=== PATIENT | male | born 1960 | race Caucasian/White ===

== ENCOUNTER 2023-08-05 02:12 | Day surgery (SDC) | payer MEDICARE, OTHER, SELFPAY ==
[2023-07-18 13:48] VITALS: BMI 25.7
[2023-08-05 06:24] VITALS: BP 120/67; PULSE 56; RESP 16; TEMP 36.3; O2SAT 100; BMI 24.3
[2023-08-05 06:37] LABS: Glucose Point of Care 112 mg/dl (65-105)
[2023-08-05] MEDS: LACTATED RINGERS 1,000 ML 150 ML IV CONT (06:38)
--- NOTE | 2023-08-05 07:04 | WPDANESEPPF ---
Anes - Initial Pre Proc Eval Procedure: Operation Date: 08/05/23 07:30 Proposed Procedures p Colonoscopy - Patrick Angela MD Date/Time: 08/05/23 07:04 Surgeon: Patrick Angela MD Pre Op Diagnosis: hx colon polyps Patient Data Age: 62 Gender: M Height: 1.85 m Weight: 83.5 kg Last Vital Signs Temp 36.3 C L 08/05/23 06:24 Pulse 56 L 08/05/23 06:24 Resp 16 08/05/23 06:24 BP 120/67 08/05/23 06:24 Pulse Ox 100 08/05/23 06:24 O2 Del Method Room Air 08/05/23 06:24 Allergies Allergy/AdvReac Type Severity Reaction Status Date / Time No Known Allergies Allergy Verified 08/05/23 06:20 Home Medications Medication Instructions Recorded Confirmed Type aspirin 81 mg tablet,delayed 81 mg PO DAILY 05/24/20 08/05/23 History release multivitamin 1 tablet PO DAILY 05/24/20 08/05/23 History omega-3 fatty acids 1,000 mg 1,000 mg PO DAILY 05/24/20 08/05/23 History capsule (Fish Oil Concentrate) metformin 500 mg tablet,extended 500 mg PO DAILY #90 tabs 02/27/23 08/05/23 Rx release 24 hr simvastatin 40 mg tablet 40 mg PO DAILY #90 tabs 06/06/23 08/05/23 Rx Laboratory Tests 08/05/23 06:32 POC Capillary Glucose 112 H mg/dl (65-105) Patient hx anesthesia problems: none Family hx anesthesia problems: none Results Review: All pre-operative results and documents have been reviewed as part of the pre-operative evaluation. [facility] Past Medical History Medical History (Updated 08/05/23 @ 07:11 by Jensen Jay DO) History of prostate cancer Hyperlipidemia Sinus bradycardia Type 2 diabetes mellitus without complications Surgical History Surgical History H/O prostatectomy History of appendectomy Family History Family History Mother Diabetes mellitus Father Family history of malignant neoplasm of urinary bladder Other Family history of malignant neoplasm Social History Social History (Reviewed 05/10/23 @ 16:08 by SCAR Marin Smoking status: Never smoker Smoking end date: 11/25/77 Alcohol intake: current Drinks per week: 5 Substance use: never Substance use type: does not use Lack of Transportation: No Lack of Food: Never True Current Housing: I Have Housing Concerned About Future Housing: No Difficulty Paying Gas/Electric Bills: No Difficulty Paying for Meds: No Difficulty w/ Childcare or Family Care: No Living arrangements: with family Spiritual care concerns: No Anes - Eval Final PreProcedure Day of Procedure 08/05/23 07:04 Patient weight: normal Heart: regular rate and rhythm Lungs: clear to auscultation and normal air movement Airway: Mallampati scale class II Neurological: alert and oriented Last oral intake: >/= 8 hours ASA classification: III Emergent: no Anesthetic plan: proceed Anesthesia type and monitoring: general GIVS and standard monitoring Results Review: All pre-operative results and documents have been reviewed as part of the pre-operative evaluation. Informed Consent: The patient's anesthetic plan and its attendant risks and benefits were discussed with the patient/family/POA. Questions were solicited and answers provided to the satisfaction of the patient/family/POA.
--- NOTE | 2023-08-05 07:18 | PM.HPGS ---
History of Present Illness History of Present Illness Consent: Risks, benefits, and alternatives have been discussed and questions answered. Patient agrees to proceed with procedure. Chief complaint: hx colon polyps Narrative: Willie Ellison is a 62 year old male Presents for colonoscopy. Patient reports that his weight appetite and bowel movements are normal. Patient denies abdominal pain. He has had no bleeding. Family history noncontributory. Previous colonoscopy 2016 revealed benign hyperplastic polyps. Review of Systems Review of Systems: Review of systems noncontributory. [facility] Past Medical History Medical History (Updated 08/05/23 @ 07:20 by Patrick Angela MD) History of prostate cancer Hyperlipidemia Sinus bradycardia Type 2 diabetes mellitus without complications Surgical History Surgical History H/O prostatectomy History of appendectomy Family History Family History Mother Diabetes mellitus Father Family history of malignant neoplasm of urinary bladder Other Family history of malignant neoplasm Social History Social History Smoking status: Never smoker Smoking end date: 11/25/77 Alcohol intake: current Drinks per week: 5 Substance use: never Substance use type: does not use Lack of Transportation: No Lack of Food: Never True Current Housing: I Have Housing Concerned About Future Housing: No Difficulty Paying Gas/Electric Bills: No Difficulty Paying for Meds: No Difficulty w/ Childcare or Family Care: No Living arrangements: with family Spiritual care concerns: No Meds Home Medications and Allergies Home Medications Medication Instructions Recorded Confirmed Type aspirin 81 mg tablet,delayed 81 mg PO DAILY 05/24/20 08/05/23 History release multivitamin 1 tablet PO DAILY 05/24/20 08/05/23 History omega-3 fatty acids 1,000 mg 1,000 mg PO DAILY 05/24/20 08/05/23 History capsule (Fish Oil Concentrate) metformin 500 mg tablet,extended 500 mg PO DAILY #90 tabs 02/27/23 08/05/23 Rx release 24 hr simvastatin 40 mg tablet 40 mg PO DAILY #90 tabs 06/06/23 08/05/23 Rx Allergies Allergy/AdvReac Type Severity Reaction Status Date / Time No Known Allergies Allergy Verified 08/05/23 06:20 Vital Signs Vital Signs - 24 hr 08/05/23 06:24 Temperature 97.3 F L Pulse Rate 56 L Respiratory Rate 16 Blood Pressure 120/67 Pulse Oximetry 100 Oxygen Delivery Room Air Exam Narrative: Physical exam reveals patient to be alert. Vital signs stable. HEENT exam is unremarkable. Patient is anicteric. Lungs are clear to auscultation and percussion. Heart is without murmur or extra sounds. Abdomen bowel sounds are present soft nontender with no organomegaly. Digital external rectal exam normal. Assessment and Plan Assessment and plan (1) Encounter for screening colonoscopy: Code(s): Z12.11 - Encounter for screening for malignant neoplasm of colon Status: Acute Assessment and Plan: Patient presents today for screening colonoscopy. He has a history of benign hyperplastic polyps in 2016. No family history of colon polyps is reported. Further recommendations may be given after endoscopy.
[2023-08-05 07:53] VITALS: BP 88/56; PULSE 57; RESP 15; O2SAT 99
[2023-08-05 08:03] VITALS: BP 93/57; PULSE 51; RESP 17; O2SAT 97
[2023-08-05 08:13] VITALS: BP 105/63; PULSE 43; RESP 19; O2SAT 99
== END 2023-08-05 08:17 | disposition home or self-care (01) ==
PROVIDERS: PCP Family Medicine; Visit Provider Internal Medicine Gastroenterology
PROC: 0DJD8ZZ Inspection of Lower Intestinal Tract, Via Natural or Artificial Opening Endoscopic (ICD-10-PCS; CPT 45378; principal; 2023-08-05 07:30)
DX: Z12.11 Encounter for screening for malignant neoplasm of colon (principal); K64.8 Other hemorrhoids; Z86.010 Personal history of colon polyps; E78.5 Hyperlipidemia, unspecified; E11.9 Type 2 diabetes mellitus without complications; Z85.46 Personal history of malignant neoplasm of prostate; Z79.82 Long term (current) use of aspirin; Z79.84 Long term (current) use of oral hypoglycemic drugs
CPT/HCPCS: G0105; 82948; J2704; J7120

== ENCOUNTER 2023-11-22 15:18 | Outpatient (CLI) | payer MEDICARE, OTHER, SELFPAY ==
--- NOTE | ~2023-11-22 | US_ITS ---
EXAMINATION: US soft tissue head and neck DATE: 11/22/2023 15:43 INDICATION: Localized enlarged lymph nodes at the right neck TECHNIQUE: Multiple grayscale and Doppler ultrasound images of the region of concern at the right nec k were obtained. COMPARISON: None FINDINGS: 5.4 x 2.1 x 3.4 cm hypoechoic solid mass with small amount of internal vascular flow on color Doppler in the right submandibular region. There is an additional 5.0 x 2.7 x 3.1 cm mass with lobular patrick ns along the right jugular chain. On cine imaging there are a few additional smaller round hypoechoic nodules likely representing lymph nodes which would be atypical in both size and morphology suspicio us for either lymphoma or metastatic disease. At the contralateral left neck there are multiple mildl y prominent but still normal-sized right jugular chain lymph nodes which retain normal central fatty ирина. IMPRESSION: 1. 5.4 similar right submandibular mass and multiple masses the largest measuring 5.0 cm along the ri ght jugular chain which are concerning for metastatic disease or lymphoma. Recommend ultrasound-guide d core needle biopsy. Reviewed, dictated and finalized at location A. IESEL PRODUCTION ASSOCIATE IMPRESSION: 1. 5.4 similar right submandibular mass and multiple masses the largest measuri ng 5.0 cm along the right jugular chain which are concerning for metastatic dis ease or lymphoma. Recommend ultrasound-guided core needle biopsy.
== END 2023-11-22 15:19 | disposition home or self-care (01) ==
PROVIDERS: PCP Family Medicine; Visit Provider Family Medicine
DX: R59.0 Localized enlarged lymph nodes (principal)
CPT/HCPCS: 76536

== ENCOUNTER 2023-12-04 08:53 | Outpatient (CLI) | payer MEDICARE, OTHER, SELFPAY ==
--- NOTE | ~2023-12-04 | US_ITS ---
EXAMINATION: US biopsy lymph node DATE: 12/04/2023 10:22 INDICATION: Right cervical lymphadenopathy. TECHNIQUE: The procedure including the risks, benefits, and alternatives was discussed with the patie nt. Risks discussed included bleeding and infection. The patient understood the risks and agreed to corine neil. The skin overlying the right neck was prepped and draped in usual sterile fashion. Anestheti c was administered with 1% lidocaine subcutaneously. An 18 gauge core biopsy needle was then used to obtain 7 core biopsy specimens under continuous sonographic guidance. The entry site was cleaned and dressed. The patient experienced syncope during the procedure. FINDINGS: Ultrasound images demonstrate the needle in a 3.9 x 2.3 x 2.1 cm node in right internal jug ular chain. IMPRESSION: 1. Ultrasound-guided core needle biopsy of an enlarged right internal jugular chain lymph node. 2. Syncope during the procedure, likely vasovagal reaction. After the brief syncope, the patient's pu lse was noted to be in the 30s-40s. The patient reports that his pulse is typically low. Blood pressu re was normal. The pulse increased over time to the 50s. Reviewed, dictated and finalized at location A. TH SERVICES RN IMPRESSION: 1. Ultrasound-guided core needle biopsy of an enlarged right internal jugular c stormy lymph node. 2. Syncope during the procedure, likely vasovagal reaction. After the brief syn cope, the patient's pulse was noted to be in the 30s-40s. The patient reports t hat his pulse is typically low. Blood pressure was normal. The pulse increased over time to the 50s.
[2023-12-04 10:17] VITALS: BP 105/67; PULSE 53; O2SAT 97
== END 2023-12-04 08:54 | disposition home or self-care (01) ==
PROVIDERS: PCP Family Medicine; Visit Provider Family Medicine
DX: R59.0 Localized enlarged lymph nodes (principal)
CPT/HCPCS: 38505; 76942; 88108; 88305; 88342

== ENCOUNTER 2023-12-09 12:25 | Outpatient (CLI) | payer MEDICARE, OTHER, SELFPAY ==
[2023-12-09 12:44] LABS: Basophils Absolute Auto 0.1 K/mm3 (0.0-0.1); Basophils Percent Auto 0.9 % (0.2-1.2); Eosinophils Percent Auto 0.3 % (0-4.4); Hematocrit 44.3 % (42.0-52.0); Hemoglobin 14.8 g/dL (14.0-18.0); Immature Granulocyte Absolute 0.02 K/mm3 (0.00-0.031); Immature Granulocyte Percent A 0.3 % (0-0.5); Lymphocytes Percent Auto 25.3 % (18.3-44.2); Mean Corpuscular HGB Conc 33.4 g/dl (32-36); Mean Corpuscular Hemoglobin 29.3 pg (26-34); Mean Corpuscular Volume 87.7 fl (80-100); Mean Platelet Volume 10.3 fl (7.4-10.4); Monocytes Absolute Auto 0.6 K/mm3 (0.1-0.6); Monocytes Percent Auto 8.9 % (2.6-8.5); Neutrophils Absolute Auto 4.3 K/mm3 (1.3-6.7); Neutrophils Percent Auto 64.3 % (45.5-73.1); Platelet Count Result 214 k/mm3 (150-375); Red Blood Count 5.05 M/mm3 (4.6-6.20); Red Cell Distribution Width 13.1 % (11.5-14.5); White Blood Count 6.7 K/mm3 (4.5-10.0)
[2023-12-09 16:33] LABS: Alanine Aminotransferase 18 U/L (6-50); Albumin Level 4.5 g/dL (3.5-5.1); Alkaline Phosphatase 61 U/L (38-126); Anion Gap 8 mmol/L (8-16); Aspartate Amino Transferase 26 U/L (17-59); Blood Urea Nitrogen 14 mg/dL (9-20); Calcium 9.1 mg/dL (8.4-10.2); Carbon Dioxide 29 mmol/L (22-30); Chloride 104 mmol/L (98-107); Estimated Glomerular Filt Rate > 60; Glucose 118 mg/dL (65-110); Sodium 141 mmol/L (137-145)
== END 2023-12-09 12:26 | disposition home or self-care (01) ==
LOC: ANHLAB 12:28
PROVIDERS: PCP Family Medicine; Visit Provider Internal Medicine Hematology & Oncology
DX: C76.0 Malignant neoplasm of head, face and neck (principal)
CPT/HCPCS: 36415; 80053; 85025

== ENCOUNTER 2023-12-17 07:00 | Outpatient (CLI) | payer MEDICARE, OTHER, SELFPAY ==
--- NOTE | ~2023-12-17 | CT_ITS ---
EXAMINATION: CT soft tissue neck w con DATE: 12/17/2023 07:47 INDICATION: Malignant neoplasm of the head, face and neck. TECHNIQUE: Computed tomography (CT) of the neck was performed with 75 mL Omnipaque-350 intravenous co ntrast. Automated exposure control and iterative reconstruction technique were employed. The dose-zahra gth product was 506.40 mGy-cm. COMPARISON: None FINDINGS: There are a couple enlarged right jugular chain lymph nodes consistent with biopsy-proven metastatic disease. The largest and most cephalad positioned posterior to the angle of the mandible measures up to 5.6 x 3.5 x 2.6 cm. The next most caudal at the level of the thyroid cartilage measures 4.1 x 3.2 x 2.5 cm. There is an additional mildly enlarged right supraclavicular lymph node which measures 1.3 x 1.3 cm. Each of these demonstrated increased FDG uptake on subsequent PET/CT. No other pathological ly enlarged cervical lymphadenopathy. There is no evident CT correlate for the small focus of increas ed uptake on the prior PET study located region of the right base of the tongue/lingual tonsil which is suspicious for the site of the primary malignancy. The bilateral parotid and submandibular glands as well as the thyroid are normal. The orbits are normal. Prominent mucous retention cyst in the left maxillary sinus. Visualized portion of the brain is unremarkable. The airway and upper lungs are reddy ar. Moderate cervical spondylosis. IMPRESSION: 1. A couple prominently enlarged right internal jugular chain lymph nodes and mildly enlarged right s upraclavicular lymph node which are without increased FDG uptake on subsequent PET CT and consistent with biopsy-proven metastatic disease. 2. No abnormal masses identified in the region of the right lingual tonsil/base of the tongue at the site of a small focus of increased activity on subsequent PET/CT which remains suspicious for the mirela e of the primary malignancy. Reviewed, dictated and finalized at location A. OUT OPERATOR IMPRESSION: 1. A couple prominently enlarged right internal jugular chain lymph nodes and m ildly enlarged right supraclavicular lymph node which are without increased FDG uptake on subsequent PET CT and consistent with biopsy-proven metastatic disea se. 2. No abnormal masses identified in the region of the right lingual tonsil/base of the tongue at the site of a small focus of increased activity on subsequent PET/CT which remains suspicious for the side of the primary malignancy.
--- NOTE | ~2023-12-17 | PE_ITS ---
EXAMINATION: PET skull to mid thigh DATE: 12/17/2023 09:12 INDICATION: Head and neck cancer. TECHNIQUE: Blood glucose level was 104 mg/dL. 10.353 mCi of 18-fluorodeoxyglucose (18-FDG) was admini stered i.v. Low dose computed tomography (CT) images were acquired from the base of the brain to the proximal thighs for attenuation correction and anatomic localization. Positron emission tomography (P ET) images were acquired in the same distribution beginning 60 minutes after injection. Images includ ing fused PET/CT images were reconstructed in axial, coronal, and sagittal planes. Automated exposure control technique was employed. The dose-length product was 1059.57mGy-cm. COMPARISON: None FINDINGS: Head/neck: 3.6 x 2.7 cm markedly FDG avid mass along the high right jugular chain deep to the angle of the kirt ble and sternocleidomastoid muscle with maximal SUV of 11.5. There is a second smaller 2.1 x 2.1 cm F DG avid mass along the right jugular chain with maximal SUV of 11.8. Finally there is a yet more caud al and lateral 1.3 x 1.1 cm FDG avid right supraclavicular mass with maximal SUV of 10.1. These are c onsistent with metastatic lymph nodes, the largest and most cephalad with recent biopsy demonstrating squamous cell carcinoma. There is approximately 1 cm focus of increased uptake with maximal SUV of 9 .4 cm at the right lingual tonsil/base of the tongue and without radiologic correlate which likely re presents the site of the primary malignancy. Otherwise typical pattern of symmetric increased activit y in the oral and nasal cavities and at the laryngeal and ocular muscles without CT correlate, likely physiologic. Chest: No suspicious pulmonary nodules, pneumonia, pulmonary edema or pleural effusion. Heart size is normal . No pathologically enlarged or FDG avid thoracic lymphadenopathy. Likely physiologic mild activity e xtending to the length of the esophagus. Thoracic aorta is normal in caliber. Abdomen/pelvis/proximal thighs: Physiologic renal accumulation and excretion of FDG activity in the kidneys, bladder and along portio ns of ureters. There is excreted contrast in the bilateral renal collecting systems, ureters and blad meghan secondary to the earlier contrast-enhanced CT of the soft tissues of the neck. Normal degree and heterogenous pattern of increased uptake throughout the liver without radiologic correlate or dominan t FDG avid lesion. There are few calcified gallstones in the dependent aspect of the otherwise normal gallbladder. The pancreas, spleen and bilateral adrenal glands are normal. Mild uptake scattered thr oughout the bowels without radiologic correlate, also likely physiologic. No other abnormal foci of i ncreased FDG uptake or pathologically enlarged lymphadenopathy in the abdomen, pelvis or proximal thi ghs. Musculoskeletal: Moderate cervical and upper thoracic spondylosis and mild spondylosis in the lumbar lower thoracic sp ine. No suspicious lytic, blastic or FDG avid bone lesions. IMPRESSION: 1. Small focus of increased FDG uptake in the region of the right lingual tonsil/base of the tongue s uspicious for the site of a primary adnexal cell carcinoma. 2. Enlarged and FDG avid right jugular chain and supraclavicular lymph nodes consistent with biopsy-p roven metastatic disease. No other metastatic disease in the bones, chest, abdomen or pelvis. 3. Cholelithiasis. Reviewed, dictated and finalized at location A. TENDER IMPRESSION: 1. Small focus of increased FDG uptake in the region of the right lingual tonsi l/base of the tongue suspicious for the site of a primary adnexal cell carcinom a. 2. Enlarged and FDG avid right jugular chain and supraclavicular lymph nodes co nsistent with biopsy-proven metastatic disease. No other metastatic disease in the bones, chest,
[2023-12-17 07:36] LABS: Glucose Point of Care 104 mg/dl (65-105)
== END 2023-12-17 07:01 | disposition home or self-care (01) ==
PROVIDERS: PCP Family Medicine; Visit Provider Internal Medicine Hematology & Oncology
DX: C76.0 Malignant neoplasm of head, face and neck (principal)
CPT/HCPCS: 70491; 78815; A9552; Q9967

== ENCOUNTER 2024-02-16 12:51 | Emergency (ER) | payer MEDICARE, OTHER, SELFPAY ==
--- NOTE | ~2024-02-16 | CT_ITS ---
EXAMINATION: CT abdomen pelvis w con DATE: 02/16/2024 15:02 INDICATION: Constipation TECHNIQUE: Computed tomography (CT) of the abdomen and pelvis was performed with 100 mL Omnipaque-350 intravenous contrast. Automated exposure control and iterative reconstruction technique were employe d. The dose-length product was 570.33 mGy-cm. COMPARISON: PET 12/17/2023 with. FINDINGS: Lower thorax: Mild dependent scar/atelectasis. Mild aortic and coronary artery calcification. Mild sy mmetric bilateral gynecomastia. Liver: Normal. Biliary/Gallbladder: Cholelithiasis. No bile duct dilation. Pancreas: No mass or duct dilation. Mild atrophy. Spleen: Normal. Adrenals:No mass. Kidneys: No suspicious mass, obstructing stone, or hydronephrosis. GI tract: Mild distal esophageal and gastric wall edema. The rectum is dilated to 6.[address] ool, mild adjacent wall thickening, no significant inflammatory stranding. Large volume of colonic fe stephy. No small bowel dilation. Surgically absent appendix.Diverticulosis without diverticulitis. Mesentery/Peritoneum: No ascites, mass, or free air. Retroperitoneum: No mass. Atherosclerotic abdominal aortic and/or arterial calcifications. Pelvis: Normal urinary bladder. Absent prostate. Soft Tissues: Soft tissues and body wall unremarkable. Bones: No acute osseous finding. IMPRESSION: Mild esophagitis/gastritis. Large volume of colonic feces, correlate for clinical findings of constipation. Mild fecal impaction. Reviewed, dictated and finalized at location K.
[2024-02-16 12:55] VITALS: BP 189/156; PULSE 104; RESP 18; TEMP 36.2; O2SAT 98
--- NOTE | 2024-02-16 13:02 | ED.ABDPAIN ---
HPI - Abdominal Pain General Chief Complaint: Abdominal Pain Stated Complaint: constipation Time Seen by Provider: 02/16/24 13:00 Source: patient and family History of Present Illness HPI narrative: 63 years old white male came to the hospital with his by private car from home complaining of diffuse abdominal pain started around 3 hour prior to arrival to the emergency room. Last bowel movement 7 days ago, patient currently on [place] 7.5 mg t.i.d. for the last few weeks secondary to throat cancer, currently on chemotherapy and radiation therapy. Patient used Fleet enema this morning without respond. Been taking Metamucil and other laxative without response. He denies any fever, chills, nausea or vomiting. Related Data Home Medications Medication Instructions Recorded Confirmed aspirin 81 mg tablet,delayed 81 mg PO DAILY 05/24/20 02/04/24 release multivitamin 1 tablet PO DAILY 05/24/20 02/04/24 omega-3 fatty acids 1,000 mg 1,000 mg PO DAILY 05/24/20 02/04/24 capsule (Fish Oil Concentrate) ondansetron HCl 8 mg tablet 8 mg PO Q8H PRN Nausea And Vomiting 01/07/24 02/04/24 Allergies Allergy/AdvReac Type Severity Reaction Status Date / Time No Known Allergies Allergy Verified 02/04/24 08:45 Review of Systems Review of Systems: All systems reviewed & are unremarkable except as noted in HPI and below PMFSH Past Medical History Medical History History of prostate cancer Hyperlipidemia Sinus bradycardia Type 2 diabetes mellitus without complications Surgical History Surgical History H/O prostatectomy History of appendectomy Family History Family History Mother Diabetes mellitus Father Family history of malignant neoplasm of urinary bladder Other Family history of malignant neoplasm Social History Social History Smoking packs per day: 1 Smoking cigarettes per day: 20.0 Years smoked: 2 Smoking pack-years: 2.00 Smoking status: Former smoker Tobacco type: cigarettes Smoking end date: 11/25/77 Additional smoking assessment comments: in youth Alcohol intake: current Drinks per week: 5 Substance use: never Substance use type: does not use Lack of Transportation: No Lack of Food: Never True Current Housing: I Have Housing Concerned About Future Housing: No Difficulty Paying Gas/Electric Bills: No Difficulty Paying for Meds: No Difficulty w/ Childcare or Family Care: No Living arrangements: with family Spiritual care concerns: No Exam Narrative: General appearance: Well-developed, well-nourished Skin: Normal color Head: Normocephalic, nontraumatic Eyes: Clear conjunctiva ENT: Oropharynx normal, ears normal, nose normal Neck: Supple, nontender Chest and respiratory: Airway patent, no respiratory distress, no accessory muscle use Heart: Regular rate/rhythm Abdomen: Soft, slight diffuse tenderness and distension, no organomegaly, quiet bowel sounds Vascular: Normal peripheral pulses, normal capillary refill. Musculoskeletal: Normal range of motion, nontender back Neurologic: Alert and oriented ?3, BEE KEEPER is normal as tested, no gross motor deficit Procedures Other Procedure Procedure 1: Other Procedure: Rectal fecal impaction, [place] gel, small amount of stool out, patient not cooperative because of pain. A plan to follow-up with soapsuds enema Course Vital Signs Vital signs: Vital Signs Temperature 36.2 C L 02/16/24 12:55 Pulse Rate 104 H 02/16/24
[2024-02-16 13:47] LABS: Basophils Percent Auto 0.5 % (0.2-1.2); Hematocrit 38.4 % (42.0-52.0); Hemoglobin 12.8 g/dL (14.0-18.0); Immature Granulocyte Absolute 0.02 K/mm3 (0.00-0.031); Immature Granulocyte Percent A 0.5 % (0-0.5); Lymphocytes Absolute Auto 0.39 K/mm3 (0.9-3.2); Lymphocytes Percent Auto 9.5 % (18.3-44.2); Mean Corpuscular HGB Conc 33.3 g/dl (32-36); Mean Corpuscular Volume 87.1 fl (80-100); Mean Platelet Volume 10.2 fl (7.4-10.4); Monocytes Absolute Auto 0.7 K/mm3 (0.1-0.6); Monocytes Percent Auto 16.5 % (2.6-8.5); Platelet Count Result 202 k/mm3 (150-375); Red Blood Count 4.41 M/mm3 (4.6-6.20); Red Cell Distribution Width 12.9 % (11.5-14.5); White Blood Count 4.1 K/mm3 (4.5-10.0)
[2024-02-16] MEDS: HYDROmorphone HCL INJ (*CRX) 1 MG/ML SYR 0.5 MG IV PUSH (13:51)
[2024-02-16] MEDS: ONDANSETRON INJ 4 MG/2 ML VIAL IV PUSH (13:51)
[2024-02-16] MEDS: SODIUM CHLORIDE 0.9% IV 1,000 ML 999 ML IV CONT ×2 (13:51→15:51)
[2024-02-16 13:58] LABS: Alanine Aminotransferase 17 U/L (6-50); Alkaline Phosphatase 67 U/L (38-126); Anion Gap 5 mmol/L (8-16); Aspartate Amino Transferase 21 U/L (17-59); Bilirubin,Total 0.7 mg/dL (0.2-1.3); Blood Urea Nitrogen 32 mg/dL (9-20); Calcium 9.2 mg/dL (8.4-10.2); Carbon Dioxide 31 mmol/L (22-30); Chloride 99 mmol/L (98-107); Estimated CRCL calculation 81 ml/min; Estimated Glomerular Filt Rate > 60; Glucose 141 mg/dL (65-110); Lipase 17 U/L (23-300); Potassium 4.4 mmol/L (3.4-5.0); Sodium 135 mmol/L (137-145)
[2024-02-16 13:59] LABS: Lactic Acid Reflex 1.7 mmol/L (0.7-2.0)
[2024-02-16 19:00] VITALS: BP 121/64; PULSE 80; RESP 16; O2SAT 95
== END 2024-02-16 19:05 | disposition home or self-care (01) ==
PROVIDERS: Emergency Provider Emergency Medicine; PCP Family Medicine
DX: K59.03 Drug induced constipation (principal); T40.2X5A Adverse effect of other opioids, initial encounter; E78.5 Hyperlipidemia, unspecified; E11.9 Type 2 diabetes mellitus without complications; Z85.46 Personal history of malignant neoplasm of prostate; Z90.79 Acquired absence of other genital organ(s); Z87.891 Personal history of nicotine dependence; Z79.84 Long term (current) use of oral hypoglycemic drugs; Z79.82 Long term (current) use of aspirin; K20.90 Esophagitis, unspecified without bleeding; K29.70 Gastritis, unspecified, without bleeding
CPT/HCPCS: 36415; 74177; 80053; 83605; 83690; 85025; 96361; 96374; 96375; 99284; J1170; J2405; J7030; Q9967

== ENCOUNTER 2024-04-09 07:09 | Outpatient (CLI) | payer MEDICARE, OTHER, SELFPAY ==
--- NOTE | ~2024-04-09 | CT_ITS ---
EXAMINATION: CT soft tissue neck w con DATE: 04/09/2024 07:51 INDICATION: Head and neck cancer. TECHNIQUE: Computed tomography (CT) of the neck was performed with 75 mL Omnipaque-350 intravenous co ntrast. Automated exposure control and iterative reconstruction technique were employed. The dose-zahra gth product was 582.46 mGy-cm. COMPARISON: Neck CT 12/17/2023 FINDINGS: There is mild scarring at the lung apices. There are enlarged right hilar and mid internal jugular chain lymph nodes. For example, a 1.7 x 1.3 cm right mid internal imaging noted previously me asured 3.1 x 2.4 cm. A 1.7 x 1.1 cm high right internal jugular chain node previously measured 3.3 x 2.5 cm. There is mucosal thickening in the pharynx and larynx, consistent with changes of radiation t herapy. There is mild mucosal thickening left maxillary sinus. There is severe cervical spondylosis. IMPRESSION: 1. Mild right internal jugular chain lymphadenopathy with interval improvement, consistent with metas tatic disease. Reviewed, dictated and finalized at location E. IMPRESSION: 1. Mild right internal jugular chain lymphadenopathy with interval improvement, consistent with metastatic disease.
[2024-04-09 07:48] LABS: Estimated Glomerular Filt Rate > 60
== END 2024-04-09 07:10 | disposition home or self-care (01) ==
PROVIDERS: PCP Family Medicine; Visit Provider Internal Medicine Hematology & Oncology
DX: C76.0 Malignant neoplasm of head, face and neck (principal)
CPT/HCPCS: 70491; Q9967

== ENCOUNTER 2024-07-16 06:33 | Outpatient (CLI) | payer MEDICARE, OTHER, SELFPAY ==
--- NOTE | ~2024-07-16 | CT_ITS ---
EXAMINATION: CT soft tissue neck w con DATE: 07/16/2024 07:06 INDICATION: Head and neck cancer. TECHNIQUE: Computed tomography (CT) of the neck was performed with 75 mL Omnipaque-350 intravenous co ntrast. Automated exposure control and iterative reconstruction technique were employed. The dose-zahra gth product was 429.92 mGy-cm. COMPARISON: CT neck 04/09/2024 FINDINGS: There is mild scarring at the lung apices. There is mild emphysema. There is a normal-sized right internal jugular chain lymph node with calcifications with interval decrease in size. There is mucosal thickening in the pharynx and larynx, consistent with changes of radiation therapy. There is mild mucosal thickening in left maxillary sinus. The mastoid air cells are normal. There is severe c ervical spondylosis. IMPRESSION: 1. Normal-sized right internal jugular chain lymph node with calcifications with interval decrease in size, consistent with treated metastatic disease. Reviewed, dictated and finalized at location A. IMPRESSION: 1. Normal-sized right internal jugular chain lymph node with calcifications wit h interval decrease in size, consistent with treated metastatic disease.
[2024-07-16 07:02] LABS: Estimated Glomerular Filt Rate > 60
== END 2024-07-16 06:34 | disposition home or self-care (01) ==
PROVIDERS: PCP Family Medicine; Visit Provider Internal Medicine Hematology & Oncology
DX: C76.0 Malignant neoplasm of head, face and neck (principal)
CPT/HCPCS: 70491; Q9967

== ENCOUNTER 2024-08-27 07:27 | Outpatient (CLI) | payer MEDICARE, OTHER, SELFPAY ==
--- NOTE | ~2024-08-27 | PE_ITS ---
EXAMINATION: PET skull to mid thigh DATE: 08/27/2024 09:39 INDICATION: Malignant neoplasm of head, face, and neck. TECHNIQUE: Blood glucose level was 108 mg/dL. 9.286 mCi of 18-fluorodeoxyglucose (18-FDG) was adminis tered i.v. Low dose computed tomography (CT) images were acquired from the base of the brain to the p roximal thighs for attenuation correction and anatomic localization. Automated exposure control was e mployed. Dose-length product (DLP) was 997 mGy-cm. Positron emission tomography (PET) images were acq uired in the same distribution. COMPARISON: PET/CT 12/17/2023, neck CT 07/16/2024 FINDINGS: Head/neck: There is a 16 x 9 mm right internal jugular chain lymph node with calcifications and maxim um SUV of 2.6. Chest: There is mild scarring at the lung apices. No pleural effusion. The heart size is normal. No p ericardial effusion. There is bilateral gynecomastia. Abdomen/pelvis/proximal thighs: The liver and spleen are normal. There are gallstones in the gallblad meghan which is normal in size. The pancreas, adrenal glands, and kidneys are normal. There is diverticu losis of the colon without evidence of diverticulitis. There are no dilated loops of bowel. There are no pathologically enlarged lymph nodes. There is no free intraperitoneal fluid. There is no osseous malignancy. IMPRESSION: 1. Normal-sized right internal jugular chain lymph node with borderline increased activity without ch iam in size from 07/16/24, consistent with metastatic disease. Reviewed, dictated and finalized at location A. IMPRESSION: 1. Normal-sized right internal jugular chain lymph node with borderline increas ed activity without change in size from 07/16/24, consistent with metastatic dis ease.
[2024-08-27 08:13] LABS: Glucose Point of Care 108 mg/dl (65-105)
== END 2024-08-27 07:28 | disposition home or self-care (01) ==
PROVIDERS: PCP Family Medicine; Visit Provider Radiology Radiation Oncology
DX: C76.0 Malignant neoplasm of head, face and neck (principal)
CPT/HCPCS: 78815; A9552

== ENCOUNTER 2024-10-23 07:51 | Outpatient (CLI) | payer MEDICARE, OTHER, SELFPAY ==
--- NOTE | ~2024-10-23 | CT_ITS ---
EXAMINATION: CT soft tissue neck w con DATE: 10/23/2024 08:20 INDICATION: Head and neck cancer. TECHNIQUE: Computed tomography (CT) of the neck was performed with 75 mL Omnipaque-350 intravenous co ntrast. Automated exposure control and iterative reconstruction technique were employed. The dose-zahra gth product was 619.38 mGy-cm. COMPARISON: CT neck 07/16/2024, PET/CT 08/27/24 FINDINGS: There is mild scarring at the lung apices. There is a normal-sized right internal jugular c stormy lymph node with calcifications. There is mucosal thickening in the pharynx and larynx, consisten t with changes of radiation therapy. There is severe cervical spondylosis. IMPRESSION: 1. Stable normal-sized right internal jugular chain lymph node with calcifications, consistent with t reated metastatic disease. Reviewed, dictated and finalized at location A. OR SOLUTIONS ARCHITECT IMPRESSION: 1. Stable normal-sized right internal jugular chain lymph node with calcificati ons, consistent with treated metastatic disease.
[2024-10-23 08:13] LABS: Estimated Glomerular Filt Rate > 60
== END 2024-10-23 07:52 | disposition home or self-care (01) ==
PROVIDERS: PCP Family Medicine; Visit Provider Internal Medicine Hematology & Oncology
DX: C76.0 Malignant neoplasm of head, face and neck (principal)
CPT/HCPCS: 70491; Q9967

== ENCOUNTER 2025-03-08 08:00 | Outpatient (CLI) | payer MEDICARE, OTHER, SELFPAY ==
--- NOTE | ~2025-03-08 | CT_ITS ---
EXAMINATION: CT soft tissue neck w con DATE: 03/08/2025 08:31 INDICATION: Head and neck cancer TECHNIQUE: Computed tomography (CT) of the neck was performed with 75 mL Omnipaque-350 intravenous co ntrast. Automated exposure control and iterative reconstruction technique were employed. The dose-zahra gth product was 474.50 mGy-cm. COMPARISON: Neck CT dated 10/23/2024 and PET/CT dated 08/27/2024 and 12/17/2023 FINDINGS: Orbits are normal. Mucous retention cyst along the floor of the left maxillary sinus. Mastoid air ladarius ls and middle ear cavities are clear. The thyroid gland is normal. Submandibular and parotid glands a re normal and symmetric. Unchanged slightly asymmetric mucosal thickening in the pharynx and larynx i ncluding the epiglottis which is most prominent in the region of the right piriform sinus likely refl ecting changes of radiation treatment for reported head and neck cancer. No interval change in a resi dual normal-sized 1.4 x 9 mm right internal jugular chain lymph node with calcification located at th e site of a previously enlarged and FDG avid metastatic lymph node consistent with treated metastatic disease. No pathologically enlarged or enlarging lymphadenopathy in the neck, supraclavicular region s were the/superior mediastinum. The vasculature is patent and normal in caliber. Airway is unremark able. Lung apices are normal. Severe lower cervical predominant spondylosis IMPRESSION: 1. No interval change in a previously enlarged and FDG avid, now normal-sized right internal jugular chain lymph node consistent with treated metastatic disease. No pathologically enlarged or enlarging lymphadenopathy to suggest recurrent metastatic disease.. Reviewed, dictated and finalized at location A. IMPRESSION: 1. No interval change in a previously enlarged and FDG avid, now normal-sized r ight internal jugular chain lymph node consistent with treated metastatic disea se. No pathologically enlarged or enlarging lymphadenopathy to suggest recurren t metastatic disease..
--- OUTSIDE RECORDS SUMMARY | 2025-03-08 08:09 | XMS_ITS | Clinical Summary ---
Author Organization [facility] Address [address] [place] [address] Care Team Providers Care Roll Icer Name Role Phone Chas Berger MD Primary Care Provider [phone] Source Comments [facility] [employer],non-owned Affiliates and Associated Physician Practices is amultiple site organization consisting of ambulatory clinics and hospital sitesin [place], [place], [place] and [place]. This disclosure is being madepursuant to the Care Everywhere program and may not contain all information available regarding this patient. Last updated 18.[facility] [employer] Social History Tobacco Use Types Packs/Day Years Used Date Smoking Tobacco: Never Assessed Sex and Gender Information Value Date Recorded Sex Assigned at Not on file Legal Sex Male 6:32 PM LODE MINER Gender Identity Not on file Sexual Orientation Not on file Plan of Treatment Health Maintenance Due Date Last Done Comments COLOGUARD (AGES 45-75) - COL ON CA SCREENING 1958 COLON MONITORING 1958 COLONOSCOPY - COLON CA SCREENING 1958 CT COLONOGRAPHY - COLON CA SCREENING 1958 Colorectal Cancer Screening 1958 FIT - COLON CA SCREENING 1958 FLEX SIG - COLON CA SCREENING 1958 LIPID TESTING 1958 MEDICARE AWV 12 MONTHS 1958 HEPATITIS C SCREENING 08/12/1976 DTAP/TDAP/TD VACCINES (1 - Tdap) 1977 PNEUMOCOCCAL VACCINE 50+ (1 of 1 - PCV) 2008 ZOSTER VACCINE (1 of 2) 2008 COVID-19 VACCINE ( - 2023-2 5 season) 2024 DEPRESSION SCREENING 11/25/2024 INFLUENZA VACCINE (Season Ended) 2025 Respiratory Syncytial Virus (RSV) Vaccine Pt: or over 60 yrs (1 - 1-dose 75+ series) 2033 HEPATITIS B VACCINE Aged Out No longe r eligible based on patient's age to complete this topic HIB VACCINE Aged Out No longer eligi ble based on patient's age to complete this topic HPV VACCINE Aged Out No longer eligi ble based on patient's age to complete this topic MENINGOCOCCAL (Group B) VACC INE SHARED DECISION-MAKING Aged Out No longer eligibl e based on patient's age to complete this topic MENINGOCOCCAL GROUPS A/C/Y/W VACCINE Aged Out No longer eligible b ased on patient's age to complete this topic Insurance MEDICARE [employer] Care Teams Roll Icer Relationship Specialty Start Date End Date Chas Berger MD [address] [place] [address] PCP - General 06/15/14
--- OUTSIDE RECORDS SUMMARY | 2025-03-08 08:09 | XMS_ITS | Clinical Summary ---
Author Organization [facility] Kendell Muniz Address [address] [place] [address] Care Team Providers Care Wardrobe Coordinator Name Role Phone Nadir Lopez Primary Care Provider [phone] Allergies No known active allergies Medications simvastatin (ZOCOR) 20 mg tablet Take 20 mg by mouth daily. 09/12/2022 Active omega-3 fatty acids-fish oil 300-1,000 mg Capsule Take by mouth daily. Active multivitamin (DAILY-ESDRAS) tablet Take 1 Tablet by mouth daily. Active aspirin (ECOTRIN EC) 81 mg Tablet, Delayed Release (E.C.) Take 81 mg by mouth daily. Active ondansetron (ZOFRAN) 8 mg Tablet Take 1 Tablet (8 mg) by mouth every 8 hours as needed for Nausea/Emes is. 30 Tablet 1 12/25/2023 Active lidocaine (lidocaine viscous 2%) 2 % Solution 10 mL by Mouth/Throa t route every 6 hours as needed for Pain. 200 mL 3 01/14/2024 Active pilocarpine (Salagen, pilocarpine,) 5 mg Tablet Take 1 Tablet (5 mg) by mouth 3 times daily. 90 Tablet 3 02/04/2024 Active fluconazole (DIFLUCAN) 100 mg tablet Take 2 tabs (200mg) on day 1, then take 1 tab (100mg) x 6 days. 8 Tablet 02/04/2024 Active HYDROcodone-acet aminophen 2.5-108 mg/5 mL SolutionIndicati ons:Cancer associated pain Take 10 mL by mouth every 6 hours as needed for Pain. Max Daily Amount: 40 mL 400 mL 02/13/2024 Active Active Problems No known active problems Encounters Date Type Department Care Team Description 01/04/[address] [facility] Oncology and Hematology [facility] [address] [place] [address] Josh Magaña MD Head and neck cancer ([facility]) 12/21/[address] [facility] Oncology and Hematology [facility] [address] [place] [address] Josh Magaña MD Head and neck cancer ([facility]) 12/08/2024 External Device Data [facility] ABSTRACTION Provider, Abstract from Last 3 Months Family History Medical History Relation Name Comments Cancer Father Diabetes Mother Leukemia Mother Skin Cancer Sister Relation Name Status Comments Brother Alive Daughter 1 Alive Daughter 2 Alive Father Mother Sister Son Alive Social History Tobacco Use Types Packs/Day Years Used Date Smoking Tobacco: Never Smokeless Tobacco: Never Tobacco Cessation:Counseling Given: Not Answered Alcohol Use Standard Drinks/Week Comments Yes 0 (1 standard drink = 0.6 oz pur e alcohol) occasional Sex and Gender Information Value Date Recorded Sex Assigned at Not on file Legal Sex Male 1:54 PM BURGLAR ALARM ASSEMBLER Gender Identity Not on file Sexual Orientation Not on file Last Filed Vital Signs Vital Sign Reading Time Taken Comments Blood Pressure 126/70 11/06/2024 8:56 AM BURGLAR ALARM ASSEMBLER Pulse 50 11/06/2024 8:56 AM BURGLAR ALARM ASSEMBLER Temperature 36.6 C (97.8 F) 11/06/2024 8:56 AM BURGLAR ALARM ASSEMBLER Respiratory Rate 18 11/06/2024 8:56 AM BURGLAR ALARM ASSEMBLER Oxygen Saturation 97% 11/06/2024 8:56 AM BURGLAR ALARM ASSEMBLER Inhaled Oxygen Concentration - - Weight 80.7 kg (178 lb) 11/06/2024 8:56 AM BURGLAR ALARM ASSEMBLER Height 185.4 cm (6' 1 ) 12/09/2023 11:42 AM BURGLAR ALARM ASSEMBLER Body Mass Index 23.48 12/09/2023 11:42 AM BURGLAR ALARM ASSEMBLER Plan of Treatment Upcoming Encounters Date Type Department Care Team (Late st Contact Info) Description 04/09/2025 9:30 AM CDT Office Visit [facility] Oncology and Hematology Radha Hedrick [address] [place] [address] Josh Magaña MD [address] [place] [address] Health Maintenance Due Date Last Done Comments DTAP/TDAP/TD VACCINES (1 - Tdap) 1977 Traditional Medicare (ACO) Annual Wellness Visit 08/17 FIT-DNA Q 3 years 2003 FIT/FOBT Q 1 year 2003 Flex Sig/CT Colonography Q 5 years 2003 PNEUMOCOCCAL VACCINE 50+ YEARS (1 of 1 - PCV) 08/17/20 08 ZOSTER VACCINE (1 of 2) 2008 INFLUENZA VACCINE (#1) 2024 COLORECTAL SCREENING 08/05/2033 08/05/2023 Colorectal Cancer Screening 08/05/2033 RSV VACCINE (60+ or ) (1 - 1-dose 75+ series) 2033 Insurance MEDICARE PART A AND B [employer] OPEN ACCESS Care Teams Wardrobe Coordinator Relationship Specialty Start Date End Date Nadir Lopez DO [address] [address] PCP - General Family Practice 12/06/23
--- OUTSIDE RECORDS SUMMARY | 2025-03-08 08:09 | XMS_ITS | Encounter Summary ---
Author Organization [facility] Address [address] [place] [address] Care Team Providers Care Special Machine Operator Name Role Phone Chas Berger MD Primary Care Provider [phone] Encounter Details Date Type Department Care Team (Late st Contact Info) Description 12/04/2023 Lab Requisition [facility] - Pathology Lab [address] [place] [address] Andrew Faulkner MD [address] [place] [address] Enlarged lymph nodes, unspecified Social History Tobacco Use Types Packs/Day Years Used Date Smoking Tobacco: Never Assessed Sex and Gender Information Value Date Recorded Sex Assigned at Not on file Legal Sex Male 6:32 PM LAMP SHADE JOINER Gender Identity Not on file Sexual Orientation Not on file documented as of this encounter Plan of Treatment Not on file documented as of this encounter Procedures Procedure Name Priority Date/Time Associated Diagnosis Comments FLOW CYTOMETRY TISSUE PANEL Routine 12/04/2023 9:20 AM LAMP SHADE JOINER Enlarged lymph nodes, unspecified documented in this encounter Results * FLOW CYTOMETRY TISSUE PANEL (12/04/2023 9:20 AM LAMP SHADE JOINER) Case Report Flow Cytometry Case: [id number] Authorizing Provider: Tawanda Faulkner MD Collected: 12/04/2023 09:20 AM Ordering Location: [facility] Pathology Lab Received: 12/04/2023 02:28 PM Pathologist: Ana Good MD Specimen: Lymph Node, RIGHT NECK 12/04/2023 5:08 PM LAMP SHADE JOINER [facility] PATHOLOGY LAB Final Diagnosis Lymph node, right neck, flow cytometric immunophenotyping : - Cellularity insufficient for evaluation 12/04/2023 5:08 PM LAMP SHADE JOINER [facility] PATHOLOG[facility] Flow Cytometry Interpretation Quantity not sufficient for evaluation. A cytospin prepared from the flow cytometry specimen has been reviewed for software quality assurance specialist purposes. The specimen is acellular. 12/04/2023 5:08 PM [facility] PATHOLOGY LAB Flow Cytometry Results Too few hematopoetic cells for flow cytometric analysis. 12/04/2023 5:08 PM [facility] PATHOLOGY LAB Reason for test Enlarged lymph nodes, unspecified 12/04/2023 5:08 PM [facility] Client Specimen ID # [id number] 12/04/2023 5:08 PM [facility] PATH[facility] Pathologist Location at [facility] 12/04/2023 5:08 PM [facility] PATH[facility] LAB Disclaimer Test performed at [facility], [address] [place] [address], [address]. *The established laboratory minimum viability is 70%. Values below the minimum may result in the failure to find an abnormal population of cells. This test was developed and its performance characteristics determined by the Flow Cytometry Laboratory. It has not been cleared by the [place] Food and Drug Administration (FDA). The FDA has determined that such clearance or approval is not necessary. This test is used for clinical purposes. It should not be regarded as investigational or for research. This laboratory is regulated under the Clinical Laboratory Improvement Amendments of 1998 (CLIA) as a qualified to perform high complexity clinical testing. 12/04/2023 5:08 PM [facility] PATHOLOGY LAB Embedded Images 5:08 PM [facility] PATH[facility] LAB Pathology/Cytolo gy ENTIRE LYMPH NODE / Unknown 12/04/2023 9:20 AM LAMP SHADE JOINER 12/04/2023 2:28 PM LAMP SHADE JOINER Andrew Faulkner MD LAB - PATHOLOGY/CYT OLOGY ORDERABLES Final Result [facility] PATH[facility] [address] [place] [address]. [place] [address], [place] [phone] documented in this encounter Visit Diagnoses Diagnosis Enlarged lymph nodes, unspecified documented in this encounter Care Teams Special Machine Operator Relationship Specialty Start Date End Date Chas Berger MD [address] [place] [address] PCP - General 06/15/14 documented as of this encounter
== END 2025-03-08 08:01 | disposition home or self-care (01) ==
PROVIDERS: PCP Family Medicine; Visit Provider Internal Medicine Hematology & Oncology
DX: C76.0 Malignant neoplasm of head, face and neck (principal)
CPT/HCPCS: 70491; Q9967

== ENCOUNTER 2025-04-09 09:04 | Outpatient (CLI) | payer MEDICARE, OTHER, SELFPAY ==
--- OUTSIDE RECORDS SUMMARY | 2025-04-09 09:20 | XMS_ITS | Encounter Summary ---
Author Organization [facility] Address [address] [place] [address] Care Team Providers Care Corporate Buyer Name Role Phone Chas Berger MD Primary Care Provider [phone] Encounter Details Date Type Department Care Team (Late st Contact Info) Description 12/04/2023 Lab Requisition [facility] - Pathology Lab [address] [place] [address] Andrew Faulkner MD [address] [place] [address] Enlarged lymph nodes, unspecified Social History Tobacco Use Types Packs/Day Years Used Date Smoking Tobacco: Never Assessed Sex and Gender Information Value Date Recorded Sex Assigned at Not on file Legal 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 MACHINE OPERATOR Gender Identity Not on file Sexual Orientation Not on file documented as of this encounter Plan of Treatment Not on file documented as of this encounter Procedures Procedure Name Priority Date/Time Associated Diagnosis Comments FLOW CYTOMETRY TISSUE PANEL Routine 12/04/2023 9:20 AM WASHING MACHINE OPERATOR Enlarged lymph nodes, unspecified documented in this encounter Results * FLOW CYTOMETRY TISSUE PANEL (12/04/2023 9:20 AM WASHING MACHINE OPERATOR) Case Report Flow Cytometry Case: [id number] Authorizing Provider: Tawanda Faulkner MD Collected: 12/04/2023 09:20 AM Ordering Location: [facility] Pathology Lab Received: 12/04/2023 02:28 PM Pathologist: Ana Good MD Specimen: Lymph Node, RIGHT NECK 12/04/2023 5:08 PM WASHING MACHINE OPERATOR U PATHOLOGY LAB Final Diagnosis Lymph node, right neck, flow cytometric immunophenotyping : - Cellularity insufficient for evaluation 12/04/2023 5:08 PM WASHING MACHINE OPERATOR [facility] PATHOLOGY LAB Flow Cytometry Interpretation Quantity not sufficient for evaluation. A cytospin prepared from the flow cytometry specimen has been reviewed for quality assurance qa lab technician purposes. The specimen is acellular. 12/04/2023 5:08 PM [facility] PATHOLOGY LAB Flow Cytometry Results Too few hematopoetic cells for flow cytometric analysis. 12/04/2023 5:08 PM [facility] PATHOLOGY LAB Reason for test Enlarged lymph nodes, unspecified 12/04/2023 5:08 PM [facility] Client Specimen ID # [id number] 12/04/2023 5:08 PM [facility] PATH[facility] LAB Pathologist Location at [facility] 12/04/2023 5:08 PM [facility] PATHOLOGY LAB Disclaimer Test performed at [facility], [address] [place] [address], [address]. *The established laboratory minimum viability is 70%. [...] high complexity clinical testing. 12/04/2023 5:08 PM [facility] PATHOLOG[facility] LAB Embedded Images 5:08 PM [facility] PATH[facility] Pathology/Cytolo gy ENTIRE LYMPH NODE / Unknown 12/04/2023 9:20 AM WASHING MACHINE OPERATOR 12/04/2023 2:28 PM WASHING MACHINE OPERATOR Andrew Faulkenr MD LAB - PATHOLOGY/CYT OLOGY ORDERABLES Final Result [facility] PATHOLOGY LAB [address] [place] [address]. [place] [address], [facility] [phone] documented in this encounter Visit Diagnoses Diagnosis Enlarged lymph nodes, unspecified documented in this encounter Care Teams Corporate Buyer Relationship Specialty Start Date End Date Chas Berger MD [address] [place] [address] PCP - General 06/15/14 documented as of this encounter
--- OUTSIDE RECORDS SUMMARY | 2025-04-09 09:20 | XMS_ITS | Clinical Summary ---
Author Organization [facility] Kendell Muniz Address [address] [place] [address] Care Team Providers Care Linen Supply Load Builder Name Role Phone So Jackson MD Primary Care Provider Allergies No known active allergies Medications simvastatin [...] Encounters Date Type Department Care Team Description 03/09/2025 Orders Only [facility] Oncology and Hematology [place] [address] [place] [address] Josh Magaña MD from Last 3 Months Family History Medical [...] on file Legal Sex Male 1:54 PM BEHAVIORAL HEALTH TECH Gender Identity Not on file Sexual Orientation Not on file Last Filed Vital Signs Vital Sign Reading Time Taken Comments Blood Pressure 126/70 11/06/2024 8:56 AM BEHAVIORAL HEALTH TECH Pulse 50 11/06/2024 8:56 AM BEHAVIORAL HEALTH TECH Temperature 36.6 C (97.8 F) 11/06/2024 8:56 AM BEHAVIORAL HEALTH TECH Respiratory Rate 18 11/06/2024 8:56 AM BEHAVIORAL HEALTH TECH Oxygen Saturation 97% 11/06/2024 8:56 AM BEHAVIORAL HEALTH TECH Inhaled Oxygen Concentration - - Weight 80.7 kg (178 lb) 11/06/2024 8:56 AM BEHAVIORAL HEALTH TECH Height 185.4 cm (6' 1 ) 12/09/2023 11:42 AM BEHAVIORAL HEALTH TECH Body Mass Index 23.48 12/09/2023 11:42 AM BEHAVIORAL HEALTH TECH Plan of Treatment Upcoming Encounters Date Type Department Care Team (Late st Contact Info) Description 04/09/2025 9:30 AM CDT Office Visit [facility] Oncology and Hematology - [place] [address] [place] [address] Josh Magaña MD [address] [place] [address] Health Maintenance Due Date Last [...] ) (1 - 1-dose 75+ series) 2033 Procedures Procedure Name Priority Date/Time Associated Diagnosis Comments CT SOFT TISSUE NECK W CONTRAST Routine 03/08/2025 4:21 PM CDT from Last 3 Months Results * CT SOFT TISSUE NECK W CONTRAST (03/08/2025 4:21 PM CDT) Anatomical Region Laterality Modality Neck Computed Tomogra phy Josh Magaña MD CT ORDERABLES Final Result from Last 3 Months Insurance MEDICARE PART A AND B [facility] [employer] Care Teams Linen Supply Load Builder Relationship Specialty Start Date End Date So Jackson MD [address] [place] [address] PCP - General Family Practice 04/09/25
--- OUTSIDE RECORDS SUMMARY | 2025-04-09 09:20 | XMS_ITS | Clinical Summary ---
Author Organization [facility] Address [address] [place] [address] Care Team Providers Care Ob/Gyn Physician Name Role Phone Chas Berger MD Primary Care Provider [phone] Source Comments [facility] [employer],non-owned Affiliates and Associated Physician Practices is amultiple site organization consisting of ambulatory clinics and hospital sitesin [place] and [place]. This disclosure is being madepursuant to the Care Everywhere program and may not contain all information available regarding this patient. Last updated 18.[facility] [employer] Social History Tobacco Use Types Packs/Day Years Used Date Smoking Tobacco: Never Assessed Sex and Gender Information Value Date Recorded Sex Assigned at Not on file Legal Sex Male 6:32 PM CONTINUITY PERSON Gender Identity Not on file Sexual Orientation [...] age to complete this topic Insurance MEDICARE [employer] Care Teams Ob/Gyn Physician Relationship Specialty Start Date End Date Chas Berger MD [address] [place] [address] PCP - General 06/15/14
[2025-04-09 09:32] LABS: Basophils Percent Auto 0.6 % (0.2-1.2); Eosinophils Absolute Auto 0.1 K/mm3 (0-0.3); Hemoglobin 13.1 g/dL (14.0-18.0); Immature Granulocyte Absolute 0.02 K/mm3 (0.00-0.031); Immature Granulocyte Percent A 0.4 % (0-0.5); Lymphocytes Absolute Auto 1.47 K/mm3 (0.9-3.2); Lymphocytes Percent Auto 29.9 % (18.3-44.2); Mean Corpuscular HGB Conc 32.8 g/dl (32-36); Mean Corpuscular Hemoglobin 29.5 pg (26-34); Mean Corpuscular Volume 90.1 fl (80-100); Mean Platelet Volume 10.4 fl (7.4-10.4); Monocytes Absolute Auto 0.7 K/mm3 (0.1-0.6); Monocytes Percent Auto 13.4 % (2.6-8.5); Neutrophils Absolute Auto 2.7 K/mm3 (1.3-6.7); Neutrophils Percent Auto 54.7 % (45.5-73.1); Platelet Count Result 166 k/mm3 (150-375); Red Blood Count 4.44 M/mm3 (4.6-6.20); Red Cell Distribution Width 13.2 % (11.5-14.5); White Blood Count 4.9 K/mm3 (4.5-10.0)
[2025-04-09 09:36] LABS: Blood Urea Nitrogen 17 mg/dL (8-26); Carbon Dioxide 26 mmol/L (22-30); Chloride 102 mmol/L (98-109); Estimated Glomerular Filt Rate > 60; Glucose 104 mg/dL (70-105); Ionized Calcium (POC) 1.21 mmol/L (1.11-1.31); Potassium 3.7 mmol/L (3.5-4.9); Sodium 140 mmol/L (138-146)
[2025-04-09 10:34] LABS: Alanine Aminotransferase 17 U/L (6-50); Albumin Level 4.1 g/dL (3.5-5.1); Alkaline Phosphatase 46 U/L (38-126); Anion Gap 7 mmol/L (4-12); Aspartate Amino Transferase 36 U/L (17-59); Bilirubin,Total 1.3 mg/dL (0.2-1.3); Blood Urea Nitrogen 18 mg/dL (9-20); Calcium 8.8 mg/dL (8.4-10.2); Carbon Dioxide 27 mmol/L (22-30); Chloride 104 mmol/L (98-107); Estimated Glomerular Filt Rate > 60; Glucose 99 mg/dL (65-110); Potassium 3.7 mmol/L (3.4-5.0); Sodium 138 mmol/L (137-145)
== END 2025-04-09 09:05 | disposition home or self-care (01) ==
LOC: ANHLAB 09:07
PROVIDERS: PCP Family Medicine; Visit Provider Internal Medicine Hematology & Oncology
DX: C76.0 Malignant neoplasm of head, face and neck (principal)
CPT/HCPCS: 36415; 80047; 80053; 85025

== ENCOUNTER 2025-09-27 07:45 | Outpatient (CLI) | payer MEDICARE, SELFPAY ==
--- NOTE | ~2025-09-27 | CT_ITS ---
EXAMINATION: CT soft tissue neck w con DATE: 09/27/2025 08:08 INDICATION: Head and neck cancer. TECHNIQUE: Computed tomography (CT) of the neck was performed with 75 mL Omnipaque-350 intravenous contrast. Automated exposure control and iterative reconstruction technique were employed. The dose-length product was 543.38 mGy-cm. COMPARISON: CT neck 03/08/2025, 10/23/2024 FINDINGS: There is mild scarring at the lung apices. There is mucosal thickening in left maxillary sinus. There is mucosal thickening in the pharynx and larynx, consistent with changes of radiation therapy. There are no pathologically enlarged lymph nodes. There are calcifications in a normal-sized right mid internal jugular chain lymph node. There is severe cervical spondylosis. IMPRESSION: 1. Stable normal-sized right internal jugular chain lymph node with calcifications, consistent with treated metastatic disease. Reviewed, dictated and finalized at location E. R AND D LAB TECHNICIAN IMPRESSION: 1. Stable normal-sized right internal jugular chain lymph node with calcificati ons, consistent with treated metastatic disease.
--- OUTSIDE RECORDS SUMMARY | 2025-09-27 07:50 | XMS_ITS | Clinical Summary ---
Author Organization [facility] Kendell Muniz Address [address] [place] [address] Care Team Providers Care Sheet Metal Assembler Name Role Phone So Jackson MD Primary [...] Encounters Date Type Department Care Team Description 09/15/2025 External Device Data STL ABSTRACTION Provider, Abstract [...] on file Legal Sex Male 1:54 PM MANAGER BANK Gender Identity Not on file Sexual Orientation Not on file Last Filed Vital Signs Vital Sign Reading Time Taken Comments Blood Pressure 136/74 04/09/2025 9:34 AM CDT Pulse 47 04/09/2025 9:34 AM CDT Temperature 36.7 C (98 F) 04/09/2025 9:34 AM CDT Respiratory Rate 15 04/09/2025 9:34 AM CDT Oxygen Saturation 98% 04/09/2025 9:34 AM CDT Inhaled Oxygen Concentration - - Weight 81.8 kg (180 lb 6.4 oz) 04/09/2025 9:34 A M CDT Height 185.4 cm (6' 1) 12/09/2023 11:42 AM MANAGER BANK Body Mass Index 23.8 12/09/2023 11:42 AM MANAGER BANK Plan of Treatment Upcoming Encounters Date Type Department Care Team (Late st Contact Info) Description 11/05/2025 9:00 AM MANAGER BANK Office Visit [facility] Oncology and Hematology - [place] [address] [facility] [address] [place] [address] Josh Magaña MD [address] [facility] [address] [place] [address] Health Maintenance Due Date Last Done Comments DTAP/TDAP/TD VACCINES (1 - Tdap) 1977 FIT-DNA Q 3 years 2003 FIT/FOBT Q 1 year 2003 Flex Sig/CT Colonography Q 5 years 2003 PNEUMOCOCCAL VACCINE 50+ YEARS (1 of 1 - PCV) 08/17/20 08 ZOSTER VACCINE (1 of 2) 2008 INFLUENZA VACCINE (#1) 2025 COLORECTAL SCREENING 08/05/2033 08/05/2023 Colorectal Cancer Screening 08/05/2033 RSV VACCINE (60+ or ) (1 - 1-dose 75+ series) 2033 Insurance MEDICARE PART A AND B [facility] BENEFIT PLANS [employer] [facility] Care Teams Sheet Metal Assembler Relationship Specialty Start Date End Date So Jackson MD [address] [place] [address] PCP - General Family Practice 04/09/25
--- OUTSIDE RECORDS SUMMARY | 2025-09-27 07:50 | XMS_ITS | Encounter Summary ---
Author Organization [facility] Address [address] [place] [address] Care Team Providers Care Vegetable Canner Name Role Phone Chas Berger MD Primary Care Provider [phone] Encounter Details Date Type Department Care Team (Late st Contact Info) Description 12/04/2023 Lab Requisition [facility] - Pathology Lab [address] [place] [address] Andrew Faulkner MD [address] [place] [id number] Enlarged lymph nodes, unspecified Social History Tobacco Use Types Packs/Day Years Used Date Smoking Tobacco: Never Assessed Sex and Gender Information Value Date Recorded Sex Assigned at Not on file Legal Sex Male 6:32 PM BATCHMAKER Gender Identity Not on file Sexual Orientation Not on file documented as of this encounter Plan of Treatment Not on file documented as of this encounter Procedures Procedure Name Priority Date/Time Associated Diagnosis Comments FLOW CYTOMETRY TISSUE PANEL Routine 12/04/2023 9:20 AM BATCHMAKER Enlarged lymph nodes, unspecified documented in this encounter Results * FLOW CYTOMETRY TISSUE PANEL (12/04/2023 9:20 AM BATCHMAKER) Case Report Flow Cytometry Case: [id number] Authorizing Provider: Tawanda Faulkner MD Collected: 12/04/2023 09:20 AM Ordering Location: [facility] Pathology Lab Received: 12/04/2023 02:28 PM Pathologist: Ana Good MD Specimen: Lymph Node, RIGHT NECK 12/04/2023 5:08 PM BATCHMAKER [facility] PATH[facility] Final Diagnosis Lymph node, right neck, flow cytometric immunophenotyping : - Cellularity insufficient for evaluation 12/04/2023 5:08 PM BATCHMAKER [facility] PATHOLOGY LAB at [address] BATCHMAKER Flow Cytometry Interpretation Quantity not sufficient for evaluation. A cytospin prepared from the flow cytometry specimen has been reviewed for director supplier quality purposes. The specimen is acellular. 12/04/2023 5:08 PM [facility] PATHOLOGY LAB Flow Cytometry Results Too few hematopoetic cells for flow cytometric analysis. 12/04/2023 5:08 PM [facility] Reason for test Enlarged lymph nodes, unspecified 12/04/2023 5:08 PM [facility] Client Specimen ID # [id number] 12/04/2023 5:08 PM [facility] PATH[facility] Pathologist Location at [facility] 12/04/2023 5:08 PM [facility] PATHOLOGY LAB Disclaimer Test performed at [facility], [address] [place] [address], [id number]. *The established laboratory minimum viability is 70%. [...] high complexity clinical testing. 12/04/2023 5:08 PM [facility] PATHOLOG[facility] LAB Embedded Images 5:08 PM [facility] PATH[facility] LAB Pathology/Cytolo gy ENTIRE LYMPH NODE / Unknown 12/04/2023 9:20 AM BATCHMAKER 12/04/2023 2:28 PM BATCHMAKER Andrew Faulkner MD LAB - PATHOLOGY/CYT OLOGY ORDERABLES Final Result [facility] PATHOLOGY LAB [address] [place] [address]. [place] [address], [facility] [phone] documented in this encounter Visit Diagnoses Diagnosis Enlarged lymph nodes, unspecified documented in this encounter Care Teams Vegetable Canner Relationship Specialty Start Date End Date Chas Berger MD [address] [place] [address] PCP - General 06/15/14 documented as of this encounter
--- OUTSIDE RECORDS SUMMARY | 2025-09-27 07:50 | XMS_ITS | Clinical Summary ---
Author Organization [facility] Address [address] [place] [address] Care Team Providers Care Academic Services Coordinator Name Role Phone Chas Berger MD Primary Care Provider [phone] Source Comments [facility],non-owned Affiliates and Associated Physician Practices is amultiple site organization consisting of ambulatory clinics and hospital sitesin [place], [place], [place] and [place]. This disclosure is being madepursuant to the Care Everywhere program and may not contain all information available regarding this patient. 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
[2025-09-27 08:05] LABS: Estimated Glomerular Filt Rate > 60
== END 2025-09-27 07:46 | disposition home or self-care (01) ==
PROVIDERS: PCP Family Medicine; Visit Provider Internal Medicine Hematology & Oncology
DX: C76.0 Malignant neoplasm of head, face and neck (principal)
CPT/HCPCS: 70491; Q9967